=== PATIENT | female | born 1960 | race Caucasian/White ===

== ENCOUNTER 2017-06-10 15:30 | Outpatient (CLI) | payer BC ==
--- NOTE | 2017-06-10 16:03 | RAD ---
THREE VIEWS OF THE LUMBAR SPINE: Date: 06-10-17 Comparison: None. History: Low back pain, pain radiating down the left thigh. FINDINGS: Five lumbar type vertebral bodies are present with intact pedicles on frontal imaging. Vertebral body height and alignment is within normal limits. No acute osseous abnormality is noted. IMPRESSION: No acute osseous abnormality. POS: [facility]
== END 2017-06-10 15:31 | disposition home or self-care (01) ==
LOC: SCSRAD 15:30
PROVIDERS: ATTEND Nurse Practitioner Family
DX: M54.42 Lumbago with sciatica, left side (principal); M54.41 Lumbago with sciatica, right side; R30.0 Dysuria
CPT/HCPCS: 72100

== ENCOUNTER 2018-07-14 08:06 | Outpatient (CLI) | payer BC ==
--- NOTE | 2018-07-14 09:21 | RAD ---
CERVICAL SPINE: INDICATIONS: Neck pain radiating into the arms. COMPARISON: None. FINDINGS: There is mild disk degenerative disease at C4-C5 and moderate disk degenerative disease at C5-C6 and C6-C7. There is straightening of the normal cervical lordosis. There is some mild left-sided neural foraminal encroachment at C4-C5, C5-C6, and C6-C7 due to uncovertebral hypertrophy. The lung apices are clear. The lateral masses are symmetric. Prevertebral soft tissues are normal appearing. IMPRESSION: Prominent disk degenerative disease at C4-C5 through C6-C7. There is suggestion of mild left osseous neural foraminal narrowing due to uncovertebral hypertrophy at C4-C5 through C6-C7. POS: TPC
== END 2018-07-14 08:07 | disposition home or self-care (01) ==
LOC: BICRAD 08:06
PROVIDERS: ATTEND Chiropractor
DX: M53.82 Other specified dorsopathies, cervical region (principal); M53.84 Other specified dorsopathies, thoracic region; M50.323 Other cervical disc degeneration at C6-C7 level
CPT/HCPCS: 72050

== ENCOUNTER 2018-07-28 15:32 | Outpatient (CLI) | payer BC ==
--- NOTE | 2018-07-28 17:27 | MRI ---
CERVICAL SPINE MRI NONCONTRAST: Indication: Chronic fatigue. Cervicalgia. Neck pain with neck upper extremity radiculopathy. FINDINGS: There is mild reversal of the normal cervical curvature with focal kyphosis centered at the C5-6 leve l. Mild degenerative hypertrophy of the C1-2 level does efface the ventral thecal sac without signifi cant cord deformity. The imaged posterior fossa contents are unremarkable. C2-3: No significant central canal or neural foraminal stenosis. C3-4: There is mild disc bulge effacing the ventral thecal sac without significant central canal sten osis. There is bilateral facet hypertrophy and uncinate process hypertrophy with mild left foraminal stenosis and minimal narrowing of the right neural foramen. C4-5: Mild disc bulge effaces the ventral thecal sac. No high grade neural foraminal stenosis. There is mild right facet osteoarthritis. C5-6: There is a right paracentral through subarticular disc protrusion, superimposed upon disc osteo phyte complex which does result in moderate central canal stenosis and associated mass effect upon/fl attening of the cervical spinal cord. There is uncinate process hypertrophy with mild bilateral neura l foraminal narrowing. C6-7: Broad based disc osteophyte complex is present with superimposed left subarticular disc protrus ion. There is moderate central canal stenosis and associated flattening/mass effect upon the cervical spinal cord, greatest at the left lateral aspect, ventrally. There is uncinate process hypertrophy a symmetric to the left with moderate left foraminal stenosis. No significant right foraminal compromis e. C7-T1: Small right paracentral disc protrusion is present without significant compromise of the centr al canal. No high grade foraminal stenosis. No acute marrow edema or significant paraspinus edema. IMPRESSION: Multilevel degenerative change throughout the cervical spine as outlined above, most pronounced at C5 -6 and C6-7 levels. POS: C
== END 2018-07-28 15:33 | disposition home or self-care (01) ==
LOC: SCSMRI 15:32
PROVIDERS: ATTEND Chiropractor
DX: M53.82 Other specified dorsopathies, cervical region (principal); M53.84 Other specified dorsopathies, thoracic region; M54.2 Cervicalgia; M79.10 Myalgia, unspecified site; M47.812 Spondylosis without myelopathy or radiculopathy, cervical region
CPT/HCPCS: 72141

== ENCOUNTER 2018-09-24 08:41 | Outpatient (CLI) | payer BC ==
--- NOTE | 2018-09-24 09:03 | RAD ---
Exam: Cervical spine 3 views HISTORY: Cervical stenosis FINDINGS: Lateral neutral, lateral flexion and lateral extension views demonstrate preservation of ve rtebral body height, without fracture. Moderate loss of disc space height and osteophyte formation at C5-C6 and C6-C7. Cervicothoracic junction is unremarkable. Straightening of normal cervical lordosis in the neutral position. No abnormal motion upon flexion or extension. Predental space is unremarkable IMPRESSION: Degenerative changes of the cervical spine as described above. No abnormal motion upon ex tension or flexion.
== END 2018-09-24 08:42 | disposition home or self-care (01) ==
LOC: TBSIIMAG 08:41
PROVIDERS: ATTEND Neurological Surgery
DX: M48.02 Spinal stenosis, cervical region (principal); M47.812 Spondylosis without myelopathy or radiculopathy, cervical region
CPT/HCPCS: 72040

== ENCOUNTER 2018-10-20 05:47 | Day surgery (SDC) | payer BC ==
[2018-10-16 12:55] VITALS: BMI 23.5
--- NOTE | 2018-10-19 09:28 | HP ---
HISTORY OF PRESENT ILLNESS: This is a 58-year-old female, who reports to the office today for evaluation of neck and left upper extremity pain. She reports that the pain started just before the New Year. No known injury. She has burning, ache, sharp pain that travels from her neck down underneath her shoulder, down the back of her arm to her full hand. She denies right-sided symptoms. She has been tilting her head to the right to relieve this pain subconsciously. She states that she has went to see the chiropractor, has been using anti-inflammatories and ice without much benefit. No formal physical therapy or [facility]. The patient states that her balance is not what it used to be. REVIEW OF SYSTEMS: A 10-point review of systems has been completed and is negative other than stated in the above HPI. PAST MEDICAL HISTORY: Hyperlipidemia, hypothyroidism, hormone replacement therapy, depression, osteopenia, panic disorder, insomnia, and sinusitis. PAST SURGICAL HISTORY: Appendectomy, hysterectomy, tonsillectomy, 2 C-sections, laparoscope, endometrial implants. FAMILY HISTORY: Father is alive with hyperlipidemia. Mother is , lung cancer. Children are alive. SOCIAL HISTORY: The patient is a nonsmoker. Denies other tobacco use. Uses alcohol on occasion rarely. No other illicit drugs. She is sexually active. Lives with her spouse. She is retired program management. MEDICATIONS: 1. [place]. 2. Vitamin D3. 3. Sertraline. 4. Alprazolam. 5. CoQ10. 6. Levothyroxine. 7. . 8. Simvastatin. ALLERGIES: NIACIN, RASH. PHYSICAL EXAMINATION: CONSTITUTIONAL: The patient is alert and oriented x3. Appears nontoxic. NECK: Soft, supple. No masses are noted. Range of motion is intact and nonpainful. NEUROLOGIC: Awake, alert, and oriented x3. Memory, attention, and fund of knowledge are normal. Cranial nerves 2 through 12 are intact. RESPIRATIONS: Normal work of breathing on room air. MUSCULOSKELETAL: Upper extremities; 5/5 strength in deltoids, biceps, triceps, wrist extension, finger extension, finger intrinsics, 4/5 left finger extension and left triceps, increased sensitivity to left hand. Reflexes symmetric. Spurling positive on the left. IMAGING STUDIES: MRI shows a central stenosis with spinal cord deformity at C5-C6, C6-C7 herniated disk, left side greater than right. ASSESSMENT AND PLAN: Cervical radiculopathy with spinal cord stenosis. Dr. Lr has offered surgery, anterior cervical discectomy and fusion of C5 through C7, and the patient states she understands the risks and is willing to proceed with surgery. Job ID: [id number]
[2018-10-20] MEDS ORDERED: Thrombin 5000 UNITS/5 ML VIAL ONE (06:16)
[2018-10-20] MEDS ORDERED: Sodium Chloride 0.9% 10 ML ONE (06:16)
[2018-10-20] MEDS ORDERED: Fentanyl 100 MCG/2 ML VIAL ONE ×3 (06:25→10:01)
[2018-10-20] MEDS ORDERED: Famotidine/PF 20 mg/2ml Vial ONE (06:25)
[2018-10-20] MEDS ORDERED: Midazolam HCl 2 mg/2 ml Vial ONE (06:36)
[2018-10-20] MEDS ORDERED: Hydrocodone-Acetamin 15 ML UDCUP ONE (11:37)
--- NOTE | 2018-10-20 15:52 | OP ---
DATE OF PROCEDURE: 10/20/2018 DIRECTOR VOICE: 1. Sidra Umaña PA-C. 2. Medical student, Susana Minaya, MS-4. INDICATIONS FOR SURGERY: Prevent neurological deterioration. PREOPERATIVE DIAGNOSES: Intervertebral disk disease with cord compression and radiculopathy, C5-C6 and C6-C7. POSTOPERATIVE DIAGNOSES: Intervertebral disk disease with cord compression and radiculopathy, C5-C6 and C6-C7. PROCEDURES PERFORMED: Anterior cervical diskectomy, intervertebral arthrodesis, placement of intervertebral biomechanical device at C5-C6 and C6-C7, anterior cervical plating at C5-C6 and C6-C7, local morselized autograft, morselized allograft, and operating microscope. PREOPERATIVE MEDICATIONS: Ancef 2 g IV. DRAIN NUMBER: Zero. DRAIN TYPE: None. DESCRIPTION OF PROCEDURE: The patient was brought to the operating room. General endotracheal anesthesia was induced. The neck was kept in normal anatomic alignment and the head positioned on a gel-filled doughnut shaped headrest. A lateral fluoro radiograph was used to plan our incision. The right side of the neck was sterilely prepped and draped and we opened with a 10 blade knife. We controlled bleeding with bipolar cautery. We dissected sharply to the platysma and cut this muscle in line with our incision. We continued our dissection medial to the sternocleidomastoid and lateral to the trachea and esophagus. We arrived to the prevertebral space. We placed a marker at C5-C6 and took a lateral fluoro radiograph to confirm the levels upon which we were operating. We then elevated the longus colli muscles off the anterior surface of C5, C6, and C7, and placed a self retaining retractor beneath them. We placed distraction pins at C5 and C7 and distracted across both of the intervening interspaces. We incised the interspaces with a 15 blade knife and we removed disk contents using curettes and rongeurs. The operating microscope was brought into the field. Under microscopic magnification and using microsurgical techniques, we removed the remainder of the intervertebral disk and the posterior longitudinal ligament. A micro curette was used to access the ventral epidural space behind the posterior longitudinal ligament, and with this opening and each interspace, we used Kerrison rongeurs to remove posterior osteophytes and posterior longitudinal ligament across the entire interspace from one neural foramen to the other. At the completion of our decompression, the dura was no longer indented at either C5-C6 or C6-C7. We then prepared the endplates for grafting with curettes and measured the height of each interspace to 7 mm with a bone rasp. Two separate 7 mm PEEK intervertebral grafts were brought into the field. The bone removed during our osteophytectomy, was carefully cleaned of soft tissue attachments and morcellized. The morselized bone was added to demineralize bone matrix as our fusion substrate and then substrate packed into the intervertebral grafts. The PEEK grafts were advanced into their respective interspaces under radiographic guidance to the appropriate depth. We then removed our distraction pins and the operative microscope. A 28 mm anterior cervical plate was brought into the field. We drilled regional airline pilot holes through the plate into the vertebral body at C5, C6, and C7, and we affixed the plate using 14 mm screws. Variable angle screws were used at C5 and C6 and fixed angle screws at C7. We engaged the locking mechanism over each of the 6 screws. AP and lateral fluoro radiographs confirmed adequate positioning of our instrumentation. We irrigated copiously with bacitracin irrigation. We closed the wound in anatomical layers and we applied a sterile dressing. This was a clean case, no contamination. Job ID: [id number]
== END 2018-10-20 12:35 | disposition home or self-care (01) ==
LOC: SDC 05:47
PROVIDERS: ATTEND Neurological Surgery
PROC: 0RG20A0 Fusion of 2 or more Cervical Vertebral Joints with Interbody Fusion Device, Anterior Approach, Anterior Column, Open Approach (ICD-10-PCS; principal; 2018-10-20)
PROC: 0RG2070 Fusion of 2 or more Cervical Vertebral Joints with Autologous Tissue Substitute, Anterior Approach, Anterior Column, Open Approach (ICD-10-PCS; principal; 2018-10-20)
PROC: 0RT30ZZ Resection of Cervical Vertebral Disc, Open Approach (ICD-10-PCS; principal; 2018-10-20)
DX: M50.022 Cervical disc disorder at C5-C6 level with myelopathy (principal); M50.122 Cervical disc disorder at C5-C6 level with radiculopathy; M50.20 Other cervical disc displacement, unspecified cervical region; E78.5 Hyperlipidemia, unspecified; E03.9 Hypothyroidism, unspecified; F32.9 Major depressive disorder, single episode, unspecified; F41.0 Panic disorder [episodic paroxysmal anxiety]; Z79.899 Other long term (current) drug therapy; Z88.8 Allergy status to other drugs, medicaments and biological substances
CPT/HCPCS: 76000; C1713; C1776; J0131; J0690; J2250; J3010; J3490; S0028

== ENCOUNTER 2019-01-12 14:58 | Outpatient (CLI) | payer BC ==
--- NOTE | 2019-01-12 15:19 | RAD ---
Exam: Cervical spine 3 views HISTORY: Follow-up cervical spine surgery COMPARISON: 09/24/2018 FINDINGS: Predental space is normal. Swelling Straightening of normal cervical lordosis Anterior fusion plate with transvertebral body screw at C5, C6 and C7. No. Perihardware lucency. Disc prosthesis at C5-C6 and C6-6. No malalignment on the AP projection. Mild facet hypertrophy Open-mouth projection demonstrates appropriate alignment of the lateral masses of C1 and C2. Incomple te evaluation of the odontoid process. IMPRESSION: Uncomplicated cervical fusion hardware. Transcribed Date/Time: 01/12/2019 3:23 PM
== END 2019-01-12 14:59 | disposition home or self-care (01) ==
LOC: TBSIIMAG 14:58
PROVIDERS: ATTEND Neurological Surgery
DX: M50.30 Other cervical disc degeneration, unspecified cervical region (principal); Z98.1 Arthrodesis status
CPT/HCPCS: 72040

== ENCOUNTER 2021-05-22 09:00 | Outpatient (CLI) | payer BC | END 2021-05-22 09:01 | disposition home or self-care (01) | LOC: BICRAD 09:00 | PROVIDERS: ATTEND Family Medicine | DX: J41.1 Mucopurulent chronic bronchitis (principal) | CPT/HCPCS: 71046 ==